=== PATIENT | male | born 1980 | race Caucasian/White ===

== ENCOUNTER 2022-08-12 15:12 | Outpatient (CLI) | payer MEDICAID, SELFPAY ==
[2022-08-12 22:08] LABS: Albumin* 4.5 g/dL (3.3-5.0); Chloride* 103 mmol/L (96-114); Potassium* 4.6 mmol/L (3.6-5.1); Sodium* 139 mmol/L (135-149)
[2022-08-12 22:10] LABS: Estimated Glomerular Filt Rate 96 ml/min
[2022-08-12 22:11] LABS: Alanine Aminotransferase* 32 U/L (4-50); Alkaline Phosphatase* 81 U/L (40-150); Aspartate Amino Transferase* 28 U/L (12-35); Bilirubin Total* 0.4 mg/dL (0.1-1.5); Blood Urea Nitrogen* 16 mg/dL (5-24); Calcium* 9.1 mg/dL (8.4-10.6); Carbon Dioxide* 28 mmol/L (20-32); Glucose* 118 mg/dL (60-115); Total Protein* 7.3 g/dL (6.0-8.3)
== END 2022-08-12 15:13 | disposition home or self-care (01) ==
LOC: LKVREF 15:18
PROVIDERS: PCP Family Medicine; Visit Provider Family Medicine
DX: Z00.00 Encounter for general adult medical examination without abnormal findings (principal); F32.A Depression, unspecified; M54.9 Dorsalgia, unspecified
CPT/HCPCS: 80053

== ENCOUNTER 2025-04-12 09:54 | Outpatient (CLI) | payer MEDICAID, SELFPAY | END 2025-04-12 09:55 | disposition home or self-care (01) | LOC: LKVREF 09:59 | PROVIDERS: PCP Family Medicine; Visit Provider Family Medicine | DX: R39.11 Hesitancy of micturition (principal); G89.29 Other chronic pain; G62.9 Polyneuropathy, unspecified | CPT/HCPCS: 80053 ==